=== PATIENT | female | born 1960 | race Caucasian/White ===

== ENCOUNTER 2016-08-24 07:26 | Emergency (ER) | payer OTHER ==
[~2016-08-24] VITALS: Ht 170.2 cm; Wt 78.5 kg
[~2016-08-24 07:26] MED LIST: ALPRAZOLAM0.5 M3 PO; BUTALBITAL/APAP1 CAP PO; DILAUDID2 MG PO; DOXYCYCLINE HYC20 MG PO; EPIPEN0.3 MG/0.3 IM; ESOMEPRAZOLE MA40 MG PO; FLEXERIL10 MG PO; HYDROMORPHONE HC4 MG PO; IBUPROFEN800 M1 PO; LAMICTAL 100MG100 MG PO; LAMOTRIGINE100 MG PO; MIRTAZAPINE15 MG PO; MORPHINE SULFA100 MG PO; PENICILLIN V P500 MG PO; PERCOCET 325 MG1 TA2 PO; PERCOCET 325 MG1 TA3 PO; PROTONIX 40MG T40 MG PO; RANITIDINE300 MG PO; REGLAN10 M1 PO; REGLAN10 MG PO; REMERON30 MG PO; TOBRAMYCIN AND10 ML OPH; TOPAMAX25 M3 PO; TOPIRAMATE25 MG PO; TRAMADOL HCL50 M1 PO; VALIUM2 MG PO; VALIUM5 M1 PO; VALIUM5 M2 PO; ZOFRAN ODT4 M1 PO; ZOFRAN ODT4 MG PO; ZOLPIDEM TARTRA10 M1 PO
[2016-08-24 07:32] VITALS: BP 108/76
--- NOTE | 2016-08-24 07:35 | ED SKIN/ALLERGY COMPLAINT ---
History of Present Illness General Chief Complaint: Skin Rash/ Abcess Stated Complaint: ?SHINGLES Source: patient, old records Exam Limitations: no limitations Vital Signs & Intake/Output Vital Signs & Intake/Output Vital Signs Date Time Temp Pulse Resp B/P B/P Pulse O2 O2 Flow FiO2 Mean Ox Delivery Rate 08/24 0732 98.4 69 18 108/76 99 Room Air Allergies Coded Allergies: latex (Severe, THROAT CLOSES, RASH 08/15/15) venom-honey bee (bee venom (honey bee)) (RED LINE THAT TRAVELS AND THROAT CLOSES 08/15/15) Reconcile Medications Diazepam (Valium) 5 MG TABLET 1 TAB PO TID PRN ANXIETY (Reported) Hydroxyzine Pamoate (Vistaril) 25 MG CAPSULE 1 CAP PO TID PRN ITCH Ibuprofen 800 MG TABLET 1 TAB PO TID PRN PAIN Lamotrigine 100 MG TABLET 1 TAB PO BID MENTAL HEALTH (Reported) Metoclopramide HCl (Reglan) 10 MG TABLET 1 TAB PO TID PRN MIGRAINES (Reported ) 30 minutes before meals and bedtime Mirtazapine (Remeron) 30 MG TABLET 1 TAB PO QPM SLEEP Morphine Sulfate (Morphine Sulfate ER) 100 MG TABLET.ER 1 TAB PO BID PAIN ( Reported) Ondansetron (Zofran Odt) 4 MG TAB.RAPDIS 1 TAB PO Q6 PRN NAUSEA Prednisone 10 MG TABLET 1 TAB PO DAILY CONTACT DERMATITIS TAKE 4 TABS FOR 3 DAYS THEN TAKE 3 TABS FOR 3 DAYS THEN TAKE 2 TABS FOR 3 DAYS THEN TAKE 1 TAB FOR 3 DAYS Topiramate (Topamax) 25 MG TABLET 1 TAB PO TID UNKNOWN (Reported) Tramadol HCl 50 MG TABLET 1 TAB PO Q6 PRN PAIN Tylenol With Codeine (Tylenol With Codeine #3 Tablet) 300 MG-30 MG TABLET 1 TAB PO Q8P PRN PAIN Zolpidem Tartrate 10 MG TABLET 1 TAB PO QHS PRN SLEEP (Reported) Triage Note: C/O PAINFUL, ITCHY, BURNING RASH TO BOTH ARMS X 5 DAYS. THINKS SHE HAS SHINGLES. Triage Nurses Notes Reviewed? yes HPI: Patient presents with worsening itchy burning rash that started on her right forearm and is now spread to her left forearm. The pain is burning in nature and is constant. The burning sensation worsened when she scratches. There is no radiation of the burning pain. She rates the burning pain is 8 out of 10 and she is requesting something to help the pain. Past History Travel History Traveled to [place] past 21 day No Medical History Any Pertinent Medical History? 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 No Review of Systems Review of Systems Constitutional: Reports: no symptoms. EENTM: Reports: no symptoms. Respiratory: Reports: no symptoms. Cardiovascular: Reports: no symptoms. GI: Reports: no symptoms. Genitourinary: Reports: no symptoms. Musculoskeletal: Reports: no symptoms. Skin: Reports: see HPI, rash. Neurological/Psychological: Reports: no symptoms. Hematologic/Endocrine: Reports: no symptoms. Immunologic/Allergic: Reports: no symptoms. All Other Systems: Reviewed and Negative Physical Exam Physical Exam General Appearance: well developed/nourished, mild distress Head: atraumatic Eyes: Bilateral: PERRL, EOMI. Ears, Nose, Throat: normal pharynx, normal ENT inspection, hearing grossly normal Neck: normal inspection, supple Respiratory: normal breath sounds, no respiratory distress, lungs clear Cardiovascular: regular rate/rhythm, normal peripheral pulses Gastrointestinal: normal bowel sounds, soft, non-tender Back: normal inspection Extremities: normal inspection, normal range of motion, no edema Neurologic/Psych: awake, alert, oriented x 3, normal mood/affect Skin: rash Skin Problem Location: upper extremities (B/L) Skin Problem Character: macules, papules, rash Lymphatic: no anterior cervical heather Comments: no evidence of scabies or bed bugs Progress Differential Diagnosis: contact dermatitis Plan of Care: Current Medications Sig/Alka Start time Last Medication Dose Stop Time Status Admin Hydroxyzine HCl 25 MG ONCE ONE 04/19 0745 AC (Atarax) 08/24 745 Prednisone 60 MG ONCE ONE 08/24 744 AC 08/24 745 Departure Departure Disposition: HOME OR SELF CARE Condition: Stable Clinical Impression Primary Impression: Contact dermatitis Referrals: JAIRON MONTALVO APRN (PCP/Family) Additional Instructions: return if symptoms worsen or for any concerns Departure Forms: Customer Survey General Discharge Information Prescriptions: Current Visit Scripts Prednisone 1 TAB PO DAILY #30 TAB TAKE 4 TABS FOR 3 DAYS THEN TAKE 3 TABS FOR 3 DAYS THEN TAKE 2 TABS FOR 3 DAYS THEN TAKE 1 TAB FOR 3 DAYS Tylenol With Codeine (Tylenol With Codeine #3 Tablet) 1 TAB PO Q8P PRN PAIN #10 TAB Hydroxyzine Pamoate (Vistaril) 1 CAP PO TID PRN ITCH #30 CAP
[2016-08-24] MEDS ORDERED: VISTARIL25 M1 PO (07:44)
[2016-08-24] MEDS ORDERED: PREDNISONE10 M2 PO (07:44)
[2016-08-24] MEDS ORDERED: TYLENOL WITH C1 EACH PO (07:44)
== END 2016-08-24 07:56 ==
LOC: ERH 07:26
DX: L25.9 Unspecified contact dermatitis, unspecified cause (principal)

== ENCOUNTER 2017-05-20 17:30 | Emergency (ER) | payer OTHER, MEDICARE ==
[~2017-05-20] VITALS: Ht 167.6 cm; Wt 68.0 kg
[~2017-05-20 17:30] MED LIST changes: +PREDNISONE10 M2 PO; +TYLENOL WITH C1 EACH PO; +VISTARIL25 M1 PO
[2017-05-20 18:15] LABS: ABSOLUTE BASOPHIL COUNT 0 /CUMM (0.0-0.2); ABSOLUTE EOSINOPHIL COUNT 0.2 /CUMM (0.0-0.7); ABSOLUTE GRANULOCYTE CT 2.4 /CUMM (1.4-6.5); ABSOLUTE LYMPH COUNT 3.4 /CUMM (1.2-3.4); ABSOLUTE MONOCYTE COUNT 0.5 /CUMM (0.10-0.60); BASOPHIL % 0.5 % (0.0-2.0); EOSINOPHIL % 2.5 % (0-5); GRANULOCYTE % 36.9 % (42.2-75.2); HEMATOCRIT 38.7 % (37-47); MEAN CORPUSCULAR HGB 29.5 PG (27.0-31.0); MEAN CORPUSCULAR HGB CONC 33.4 G/DL (33.0-37.0); MEAN CORPUSCULAR VOLUME 88.4 FL (81.0-99.0); PLATELET COUNT 292 /CUMM (130-400); RED BLOOD CELL CT 4.38 /CUMM (4.20-5.40); WHITE BLOOD CELL COUNT 6.5 /CUMM (4.8-10.8)
--- NOTE | 2017-05-20 18:15 | ED GI/GU/ABDOMINAL COMPLAINT ---
History of Present Illness General Chief Complaint: General Adult Stated Complaint: PT SAYS HER LIVER IS SWALLOW AND SHAKEY Source: patient, old records Exam Limitations: no limitations Vital Signs & Intake/Output Vital Signs & Intake/Output Vital Signs Date Time Temp Pulse Resp B/P B/P Pulse O2 O2 Flow FiO2 Mean Ox Delivery Rate 05/20 1750 97.4 90 18 111/84 99 Room Air Allergies Coded Allergies: latex (Severe, THROAT CLOSES, RASH 08/15/15) venom-honey bee (bee venom (honey bee)) (RED LINE THAT TRAVELS AND THROAT CLOSES 08/15/15) Reconcile Medications Diazepam (Valium) 5 MG TABLET 1 TAB PO TID PRN ANXIETY (Reported) Diazepam (Valium) 5 MG TABLET 1 TAB PO BIDP PRN anxiety Hydroxyzine Pamoate (Vistaril) 25 MG CAPSULE 1 CAP PO TID PRN ITCH Ibuprofen 800 MG TABLET 1 TAB PO TID PRN PAIN Lamotrigine 100 MG TABLET 1 TAB PO BID MENTAL HEALTH (Reported) Metoclopramide HCl (Reglan) 10 MG TABLET 1 TAB PO TID PRN MIGRAINES (Reported ) 30 minutes before meals and bedtime Mirtazapine (Remeron) 30 MG TABLET 1 TAB PO QPM SLEEP Morphine Sulfate (Morphine Sulfate ER) 100 MG TABLET.ER 1 TAB PO BID PAIN ( Reported) Ondansetron (Zofran Odt) 4 MG TAB.RAPDIS 1 TAB PO Q6 PRN NAUSEA Prednisone 10 MG TABLET 1 TAB PO DAILY CONTACT DERMATITIS TAKE 4 TABS FOR 3 DAYS THEN TAKE 3 TABS FOR 3 DAYS THEN TAKE 2 TABS FOR 3 DAYS THEN TAKE 1 TAB FOR 3 DAYS Topiramate (Topamax) 25 MG TABLET 1 TAB PO TID UNKNOWN (Reported) Tramadol HCl 50 MG TABLET 1 TAB PO Q6 PRN PAIN Tylenol With Codeine (Tylenol With Codeine #3 Tablet) 300 MG-30 MG TABLET 1 TAB PO Q8P PRN PAIN Zolpidem Tartrate 10 MG TABLET 1 TAB PO QHS PRN SLEEP (Reported) Triage Note: PT TO ED FOR R UPPER ABD PAIN X SEVERAL WEEKS, STATING SHE WAS EVALUATED FOR SAME ONE YEAR AGO AND WAS DX'ED WITH A "SWOLLEN LIVER". DENIES N/V/D, C/O LIGHTHEADEDNESS AND ANXIETY. PT STATING SHE WAS SUPPOSED TO GET AN OUTPATIENT US TODAY BUT DIDNT GO "SO I WAS HOPING I COULD GET THAT DONE HERE." Triage Nurses Notes Reviewed? yes ? n Is pt currently ? No Onset: Abrupt Duration: constant, x 1 year Timing: recent history Quality/Severity: moderate Severity Numbers: 6 Location: right upper quadrant Radiation: flank (right) Activities at Onset: none No Modifying Factors: none Associated Symptoms: denies HPI: 56-year-old female history of bipolar, anxiety presents complaining one year history of right upper quadrant pain into the right flank. The patient states that she was evaluated by her primary care physician about a year ago and was told that she has a "swollen liver" and was told that her liver tests were in the "900s" patient denies history of alcohol abuse nausea vomiting diarrhea. She was scheduled for an ultrasound today however states she came here instead. She denies any change in her bowel movements no black or bloody stools no chest pain dizziness lightheadedness. The patient states that her pain is making her anxious however she's been taking Valium which is been helping. No fever no chills. No jaundice. She denies history of alcohol abuse. She states the pain is worse with lying on the side there is no shortness of breath or pain with inspiration. Past History Travel History Traveled to [place] past 21 day No Medical History Any Pertinent Medical History? 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 No Review of Systems Review of Systems Constitutional: Reports: see HPI. Comments Review of systems: See HPI, All other systems negative. Constitutional, no chills no fever HEENT: no sore throat no congestion Cardiovascular: No chest pain Skin: no rashes, no change in skin Respiratory: No dyspnea no cough no sputum GI: No nausea no vomiting, no diarrhea, : No dysuria No hematuria, no frequency Muscle skeletal: No joint pain, no back pain Neurologic: , no headache Heme/endocrine: No bruising Immunology: No lymphadenopathy Physical Exam Physical Exam General Appearance: well developed/nourished, no apparent distress, alert Gastrointestinal: normal bowel sounds, soft, non-tender Comments: Well-developed well-nourished person in no acute distress HEENT: Normal EENT exam; PERRL, EOMI, HEAD is atraumatic. moist mucous membranes. Neck: Supple, normal range of motion Back: Nontender, right flank tenderness tenderness. Full range of motion Cardiovascular: Regular rate and rhythms no murmurs Respiratory: Chest nontender.There were no bony deformities, no asymmetry. No respiratory distress. Patient speaking in full complete sentences. Breath sounds clear to auscultation bilaterally: NO W/R/R Abdomen: Soft, nontender, negative Weathers's sign nondistended, no appreciable organomegaly. Normal bowel sounds. No rebound/guarding, No appreciable enlargement of the abdominal aorta, No ascites. Extremity: No edema, full range of motion of extremities Neuro: Alert oriented x3, motor sensory normal, There were no obvious focal neurologic abnormalities. Skin: No appreciable rash on exposed skin, skin is warm and dry. Psych: Mood and affect is normal, memory and judgment is normal. Core Measures ACS in differential dx? No Sepsis Present: No Sepsis Focused Exam Completed? No Progress Differential Diagnosis: biliary colic, bowel obstruction, colon cancer, cholecystitis, diverticulitis, gastritis, hepatitis, hernia, inflamm bowel dis Plan of Care: Orders Procedure Date/time Status Add-on Test (ER Only) 05/20 1825 Active LIPASE 05/20 175 Complete EKG 05/20 175 Active COMPREHENSIVE METABOLIC PANEL 05/20 175 Complete CBC WITHOUT DIFFERENTIAL 05/20 175 Complete Current Medications Sig/Alka Start time Last Medication Dose Stop Time Status Admin Diazepam 2 MG ONCE ONE 05/20 2100 UNVr (Valium) 05/20 2100 Ketorolac 30 MG ONCE ONE 05/20 1830 CAN Tromethamine 05/20 183 (Toradol) Laboratory Tests 05/20/17 1759: Anion Gap 14, Estimated GFR > 60, BUN/Creatinine Ratio 31.4 H, Glucose 98, Calcium 10.0, Total Bilirubin 0.4, AST 21, ALT 28, Alkaline Phosphatase 66, Total Protein 7.5, Albumin 4.8, Globulin 2.7, Albumin/Globulin Ratio 1.8, Lipase 69, CBC w Diff NO MAN DIFF REQ, RBC 4.38, MCV 88.4, MCH 29.5, RDW 14.0, MPV 7.0 L, Gran % 36.9 L, Lymphocytes % 52.7 H, Monocytes % 7.4, Eosinophils % 2.5, Basophils % 0.5, Absolute Granulocytes 2.4, Absolute Lymphocytes 3.4, Absolute Monocytes 0.5, Absolute Eosinophils 0.2, Absolute Basophils 0, PUBS MCHC 33.4 Labs ordered old records 3 pacemaker Toradol 30 IM On repeat evaluation patient resting in no apparent distress and discussed with all of her labs pending CAT scan 2054 I discussed the patient at length all her results I did advise close follow -up with her primary care physician on Monday return precautions were discussed at length there is no pain with inspiration no shortness of breath or cough no hemoptysis, pain is reproducible to the right flank. Abdomen exam is unremarkable. Diagnostic Imaging: Viewed by Me: CT Scan. Discussed w/RAD: CT Scan. Radiology Impression: PATIENT: DUC NARVAEZ PRESENT AGE: 56 PATIENT ACCOUNT NO: [id number] : 62 LOCATION: [facility] ORDERING PHYSICIAN: Jerry KENYON SERVICE DATE: 05/20/17 EXAM TYPE: CAT - CT ABD & PELVIS W/O IV CONTRAS EXAMINATION: CT ABDOMEN AND PELVIS WITHOUT CONTRAST CLINICAL INFORMATION: Right upper quadrant pain COMPARISON: Abdominal ultrasound 09/01/2011 TECHNIQUE: Multidetector volumetric imaging was performed from the superior aspect of the liver through the pubic symphysis. Sagittal and coronal reformatted images were obtained on the technologist's workstation. DLP: 250 mGy -cm FINDINGS: LUNG BASES: The visualized lung bases are unremarkable. LIVER, GALLBLADDER, AND BILIARY TREE: The liver is normal in size, shape, and attenuation. No focal hepatic lesion or biliary ductal dilatation is present. The gallbladder is unremarkable with no evidence of radiopaque gallstones, gallbladder wall thickening, or obvious pericholecystic inflammatory changes. PANCREAS: Unremarkable. SPLEEN: Unremarkable. ADRENAL GLANDS: Unremarkable. KIDNEYS AND URETERS: The kidneys are normal in size, shape, and attenuation. No hydronephrosis, hydroureter, or calculi seen. No perinephric stranding. BLADDER: Completely empty. GASTROINTESTINAL TRACT: Dense stool is noted throughout the colon. There are no dilated loops of small or large bowel. The appendix is normal. ABDOMINAL WALL: No significant hernia is appreciated. LYMPH NODES: Normal. VASCULAR: Unremarkable. PELVIC VISCERA: Unremarkable. No significant free fluid within the pelvis. OSSEOUS STRUCTURES: Unremarkable. IMPRESSION: 1. Limited noncontrast CT of abdomen and pelvis. 2. No convincing acute intra- abdominal or pelvic process. 3. Dense stool throughout the colon. DICTATED BY: Asha Edwards MD DATE/TIME DICTATED:05/20/172032 LOG ROLLER:DOMI DATE/TIME TRANSCRIBED:05/20/172032 CONFIDENTIAL, DO NOT COPY WITHOUT APPROPRIATE AUTHORIZATION. <Electronically signed in Other Vendor System> SIGNED BY: Asha Edwards MD 05/20/172039 Initial ED EKG: nsr at 75, no acute st seg changes, normal axis Prior EKG: unchanged (07/2012) Departure Departure Time of Disposition: 2045 Disposition: HOME OR SELF CARE Condition: Stable Clinical Impression Primary Impression: Abdominal pain Referrals: Dmitri Osorio APRN (PCP/Family) Additional Instructions: Follow-up with your primary care physician this week. Valium as directed. Return anytime sooner with any concerns. Departure Forms: Customer Survey General Discharge Information Prescriptions: Current Visit Scripts Diazepam (Valium) 1 TAB PO BIDP PRN anxiety #10 TAB
--- NOTE | 2017-05-20 20:40 | CT SCAN REPORT ---
EXAMINATION: CT ABDOMEN AND PELVIS WITHOUT CONTRAST CLINICAL INFORMATION: Right upper quadrant pain COMPARISON: Abdominal ultrasound 09/01/2011 TECHNIQUE: Multidetector volumetric imaging was performed from the superior aspect of the liver through the pubic symphysis. Sagittal and coronal reformatted images were obtained on the technologist's workstation. DLP: 250 mGy-cm FINDINGS: LUNG BASES: The visualized lung bases are unremarkable. LIVER, GALLBLADDER, AND BILIARY TREE: The liver is normal in size, shape, and attenuation. No focal hepatic lesion or biliary ductal dilatation is present. The gallbladder is unremarkable with no evidence of radiopaque gallstones, gallbladder wall thickening, or obvious pericholecystic inflammatory changes. PANCREAS: Unremarkable. SPLEEN: Unremarkable. ADRENAL GLANDS: Unremarkable. KIDNEYS AND URETERS: The kidneys are normal in size, shape, and attenuation. No hydronephrosis, hydroureter, or calculi seen. No perinephric stranding. BLADDER: Completely empty. GASTROINTESTINAL TRACT: Dense stool is noted throughout the colon. There are no dilated loops of small or large bowel. The appendix is normal. ABDOMINAL WALL: No significant hernia is appreciated. LYMPH NODES: Normal. VASCULAR: Unremarkable. PELVIC VISCERA: Unremarkable. No significant free fluid within the pelvis. OSSEOUS STRUCTURES: Unremarkable. IMPRESSION: 1. Limited noncontrast CT of abdomen and pelvis. 2. No convincing acute intra-abdominal or pelvic process. 3. Dense stool throughout the colon.
[2017-05-20] MEDS ORDERED: VALIUM5 M2 PO (20:48)
[2017-05-20 20:56] VITALS: BP 124/68
== END 2017-05-20 20:57 ==
LOC: ERH 17:30
PROVIDERS: Emergency Medicine
DX: R10.11 Right upper quadrant pain (principal)
CPT/HCPCS: 74176; 93005; 93010; 96372; J1885

== ENCOUNTER 2017-05-29 13:59 | Emergency (ER) | payer OTHER, MEDICARE ==
[~2017-05-29] VITALS: Ht 170.2 cm; Wt 68.0 kg
[~2017-05-29 13:59] MED LIST changes: +LAMOTRIGINE100 M2 PO; -LAMOTRIGINE100 MG PO
[2017-05-29 14:45] VITALS: BP 100/65
== END 2017-05-29 15:00 | disposition admitted as inpatient to this hospital (09) ==
LOC: ERH 13:59
DX: R07.81 Pleurodynia (principal)

== ENCOUNTER 2017-05-31 13:29 | Emergency (ER) | payer OTHER, MEDICARE ==
[~2017-05-31] VITALS: Ht 170.2 cm; Wt 65.8 kg
--- NOTE | 2017-05-31 14:05 | ED GENERAL ADULT ---
History of Present Illness General Chief Complaint: Abdominal Pain/Flank Pain Stated Complaint: ABD PAIN Source: patient, old records Exam Limitations: no limitations Vital Signs & Intake/Output Vital Signs & Intake/Output Vital Signs Date Time Temp Pulse Resp B/P B/P Pulse O2 O2 Flow FiO2 Mean Ox Delivery Rate 05/31 1605 98.8 89 16 128/76 97 Room Air 05/31 1438 98 Room Air 05/31 1335 98.6 99 16 121/81 98 Room Air Allergies Coded Allergies: latex (Severe, THROAT CLOSES, RASH 08/15/15) venom-honey bee (bee venom (honey bee)) (RED LINE THAT TRAVELS AND THROAT CLOSES 08/15/15) Reconcile Medications Diazepam (Valium) 5 MG TABLET 1 TAB PO TID PRN ANXIETY (Reported) Diazepam (Valium) 5 MG TABLET 1 TAB PO BIDP PRN anxiety Hydroxyzine Pamoate (Vistaril) 25 MG CAPSULE 1 CAP PO TID PRN ITCH Ibuprofen 800 MG TABLET 1 TAB PO TID PRN PAIN Lamotrigine 100 MG TABLET 1 TAB PO BID MENTAL HEALTH (Reported) Metoclopramide HCl (Reglan) 10 MG TABLET 1 TAB PO TID PRN MIGRAINES (Reported ) 30 minutes before meals and bedtime Mirtazapine (Remeron) 30 MG TABLET 1 TAB PO QPM SLEEP Morphine Sulfate (Morphine Sulfate ER) 100 MG TABLET.ER 1 TAB PO BID PAIN ( Reported) Naproxen (Naprosyn) 500 MG TABLET 1 TAB PO BID PRN PAIN Ondansetron (Zofran Odt) 4 MG TAB.RAPDIS 1 TAB PO Q6 PRN NAUSEA Prednisone 10 MG TABLET 1 TAB PO DAILY CONTACT DERMATITIS TAKE 4 TABS FOR 3 DAYS THEN TAKE 3 TABS FOR 3 DAYS THEN TAKE 2 TABS FOR 3 DAYS THEN TAKE 1 TAB FOR 3 DAYS Topiramate (Topamax) 25 MG TABLET 1 TAB PO TID UNKNOWN (Reported) Tramadol HCl 50 MG TABLET 1 TAB PO Q6 PRN PAIN Tylenol With Codeine (Tylenol With Codeine #3 Tablet) 300 MG-30 MG TABLET 1 TAB PO Q8P PRN PAIN Zolpidem Tartrate 10 MG TABLET 1 TAB PO QHS PRN SLEEP (Reported) Triage Note: 56F RETURNS FOR CONTINUED RUQ PAIN XMONTHS, SEEN HERE 3X THIS MONTH FOR SAME HAD BLOODWORK AND CT WHICH WERE INSIGNIFICANT. HAS NOT FOLLOWED UP WITH PMD, NEEDS REFERRAL FOR GI. PAIN IS CONSTANT AND RADIATES TO BACK, TENDER TO TOUCH. UNSURE IF IT IS MUSCULAR. -N/V/D. AFEBRILE Triage Nurses Notes Reviewed? yes Onset: Gradual Duration: worse persistent since (MONTHS) Timing: recent history Injury Environment: home Severity: severe Severity Numbers: 9 Modifying Factors: Improves With: immobilization. Worsens With: movement. HPI: Patient is a 56-year-old female presenting to the emergency department with chief complaint of right upper quadrant abdominal pain and right rib pain has been going on constantly for the past several months. She's had seen and evaluated multiple times for cell or symptoms. She has not had the chance to follow up with a specialist yet. She's been taking [id number] Tylenol without relief. Denies any associated nausea or vomiting. Denies any change in diet. No chest pain or palpitations. No shortness of breath. Pain does get worse with deep inspiration. Denies any trauma. No heavy lifting. It does not get worse after eating. (Kasey Barraza) Past History Travel History Traveled to [place] past 21 day No Medical History Any Pertinent Medical History? 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 No (Kasey Barraza) Review of Systems Review of Systems Constitutional: Reports: no symptoms. Comments Review of systems: See HPI, All other systems negative. Constitutional, no chills fever or weight loss HEENT: No visual changes no sore throat no congestion Cardiovascular: No chest pain ,palpitation , orthopnea or ankle swelling Skin, no jaundice no rashes Respiratory: No dyspnea cough sputum or hemoptysis GI: No nausea no vomiting : No dysuria No hematuria Muscle skeletal: no back pain, no neck pain, Neurologic: No numbness no confusion NO HEADACHES Psych: No stress anxiety or depression,. Heme/endocrine: No bruising no bleeding no polyuria or polydipsia Immunology: No splenectomy or history of AIDS (Kasey Barraza) Physical Exam Physical Exam General Appearance: well developed/nourished, no apparent distress, alert, awake , comfortable Comments: Well-developed well-nourished person in no acute distress HEENT: Normal EENT exam, extraocular motion intact, no nystagmus. Pupils equally round and reactive to light and accommodation. Nose is atraumatic. External auditory canal and Tympanic membranes clear. Pharynx normal. No swelling or edema. Neck: Supple, no lymphadenopathy, normal range of motion without pain or tenderness Back: Nontender, no CVA tenderness. Full range of motion Cardiovascular: Regular rate and rhythms no murmurs rubs or gallops, normal JVP Respiratory: Chest IS TENDER TO PALPATION OVER RIGHT ANTERIOR AND LATERAL RIBS. No respiratory distress.breath sounds clear to auscultation bilaterally Abdomen: Soft, TENDER TO PALPATION OVER RUQ nondistended, no appreciable organomegaly. Normal bowel sounds. No ascites Extremity: No edema, no calf tenderness to palpation, normal and equal pulses. Neuro: Alert oriented x3 Skin: No appreciable rash on exposed skin, skin is warm and dry. Psych: Mood and affect is normal, memory and judgment is normal. Core Measures ACS in differential dx? No CVA/TIA Diagnosis: No Sepsis Present: No Sepsis Focused Exam Completed? No Diagram Body: 1) PAIN OVER RIGHT FLANK/RIGHT RIBS AND RUQ (Kasey Barraza) Progress Differential Diagnoses I considered the following diagnoses in my evaluation of the patient: Rib contusion, rib fracture, gallbladder dysfunction, biliary colic, pulmonary embolus, ACS, muscle strain Plan of Care: Orders Procedure Date/time Status TROPONIN LEVEL 05/31 1403 Complete PARTIAL THROMBOPLASTIN TIME 05/31 1403 Complete PROTHROMBIN TIME 05/31 1403 Complete LIPASE 05/31 1403 Complete D-DIMER 05/31 1403 Complete COMPREHENSIVE METABOLIC PANEL 05/31 1403 Complete CBC WITHOUT DIFFERENTIAL 05/31 1403 Complete EKG 05/31 1403 Active Current Medications Sig/Alka Start time Last Medication Dose Stop Time Status Admin Ketorolac 30 MG ONCE ONE 05/31 1415 CAN Tromethamine 05/31 1416 (Toradol) Laboratory Tests 05/31/17 1417: Anion Gap 11, Estimated GFR > 60, BUN/Creatinine Ratio 23.3, Glucose 92, Calcium 9.5, Total Bilirubin 0.4, AST 18, ALT 33, Alkaline Phosphatase 58, Troponin I < 0.01, Total Protein 6.3, Albumin 3.9, Globulin 2.4, Albumin/Globulin Ratio 1.6, Lipase 72, PT 11.3, INR 1.08, APTT 30, D-Dimer High Sensitivty < 200, CBC w Diff NO MAN DIFF REQ, RBC 4.07 L, MCV 87.2, MCH 29.2, MCHC 33.5, RDW 14.0, MPV 7.4, Gran % 48.0, Lymphocytes % 43.0, Monocytes % 6.4, Eosinophils % 1.8, Basophils % 0.8, Absolute Granulocytes 2.3, Absolute Lymphocytes 2.1, Absolute Monocytes 0.3 , Absolute Eosinophils 0.1, Absolute Basophils 0 Diagnostic Imaging: Viewed by Me: Ultrasound. Discussed w/RAD: Ultrasound. Radiology Impression: PATIENT: DUC NARVAEZ PRESENT AGE: 56 PATIENT ACCOUNT NO: [id number] : 62 LOCATION: [facility] ORDERING PHYSICIAN: Kasey KENYON SERVICE DATE: 05/31/17 EXAM TYPE: US - US-LIMITED ABDOMEN EXAMINATION: US ABDOMEN LIMITED CLINICAL INFORMATION: Right upper quadrant pain. COMPARISON: CT scan of the abdomen and pelvis dated 2017. TECHNIQUE: Real-time imaging of the right upper quadrant abdominal viscera. FINDINGS: PANCREAS: Normal. LIVER: No focal hepatic findings. The liver demonstrates normal size and contour, and minimally generally increased in echogenicity. No focal lesion or intrahepatic biliary duct dilatation. GALLBLADDER: No sonographic Weathers's sign was elicited during the study. The gallbladder is physiologically distended without evidence of stones, sludge, polyps, wall thickening or pericholecystic fluid. COMMON BILE DUCT: Normal in caliber measuring 0.4 cm in diameter. RIGHT KIDNEY: Normal. No hydronephrosis. No renal calculi or focal parenchymal lesions. The kidney measures 10.0 cm in maximum dimension. FREE FLUID: None. IMPRESSION: 1. Mild generalized hepatic steatosis. 2. No sonographic evidence of acute cholecystitis or cholelithiasis. Of note, no sonographic Weathers's sign was elicited during the study. DICTATED BY : Ny Reeves MD DATE/TIME DICTATED:05/31/171551 AUGER OPERATOR: DOMI DATE/TIME TRANSCRIBED:05/31/171551 CONFIDENTIAL, DO NOT COPY WITHOUT APPROPRIATE AUTHORIZATION. <Electronically signed in Other Vendor System> SIGNED BY: Ny Reeves MD 05/31/171558 Initial ED EKG: normal axis (72 BPM), NSR Comments: D-dimer is negative. Mild pain relief after IV Toradol. STILL pending ultrasound. Labs are unremarkable. Troponin negative. EKG unchanged. She will follow up with GI. Etiology of pain unclear at this time. Could be muscular. (Kasey Barraza) Departure Departure Time of Disposition: 1606 Disposition: HOME OR SELF CARE Condition: Stable Clinical Impression Primary Impression: Abdominal pain Qualifiers: Abdominal location: right upper quadrant Qualified Code: R10.11 - Right upper quadrant pain Referrals: Dmitri Osorio APRN (PCP/Family) Marco Mancini MD Additional Instructions: Follow-up with gastroenterology call to make appointment in the next 5-7 days. YOU may need HIDA SCAN FOR FURTHER EVALUATION. TAKE NAPROXEN PRESCRIBED FOR PAIN. RETURN FOR WORSENING SYMPTOMS OR CONCERNS. Departure Forms: Customer Survey General Discharge Information Prescriptions: Current Visit Scripts Naproxen (Naprosyn) 1 TAB PO BID PRN PAIN #20 TAB (Kasey Barraza) PA/EATING DISORDER SPECIALIST Co-Sign Statement Statement: ED Attending supervision documentation- [] I saw and evaluated the patient. I have also reviewed all the pertinent lab results and diagnostic results. I agree with the findings and the plan of care as documented in the PA's/EATING DISORDER SPECIALIST's documentation. [X] I have reviewed the ED Record and agree with the PA's/EATING DISORDER SPECIALIST's documentation. [] Additions or exceptions (if any) to the PAs/EATING DISORDER SPECIALIST's note and plan are summarized below: [] (Stefany CATES,Fadia) Critical Care Note Critical Care Note Critical Care Time: non-applicable (Kasey Barraza)
[2017-05-31 14:31] LABS: ABSOLUTE BASOPHIL COUNT 0 /CUMM (0.0-0.2); ABSOLUTE EOSINOPHIL COUNT 0.1 /CUMM (0.0-0.7); ABSOLUTE GRANULOCYTE CT 2.3 /CUMM (1.4-6.5); ABSOLUTE LYMPH COUNT 2.1 /CUMM (1.2-3.4); ABSOLUTE MONOCYTE COUNT 0.3 /CUMM (0.10-0.60); BASOPHIL % 0.8 % (0.0-2.0); EOSINOPHIL % 1.8 % (0-5); HEMATOCRIT 35.5 % (37-47); MEAN CORPUSCULAR HGB 29.2 PG (27.0-31.0); MEAN CORPUSCULAR HGB CONC 33.5 G/DL (33.0-37.0); MEAN CORPUSCULAR VOLUME 87.2 FL (81.0-99.0); MEAN PLATELET VOLUME 7.4 FL (7.4-10.4); PLATELET COUNT 203 /CUMM (130-400); RED BLOOD CELL CT 4.07 /CUMM (4.20-5.40); WHITE BLOOD CELL COUNT 4.8 /CUMM (4.8-10.8)
[2017-05-31 14:38] LABS: PT 11.3 SEC (9.4-12.5); PTT 30 SEC (25-37)
--- NOTE | 2017-05-31 15:59 | ULTRASOUND REPORT ---
EXAMINATION: US ABDOMEN LIMITED CLINICAL INFORMATION: Right upper quadrant pain. COMPARISON: CT scan of the abdomen and pelvis dated 05/20/2017. TECHNIQUE: Real-time imaging of the right upper quadrant abdominal viscera. FINDINGS: PANCREAS: Normal. LIVER: No focal hepatic findings. The liver demonstrates normal size and contour, and minimally generally increased in echogenicity. No focal lesion or intrahepatic biliary duct dilatation. GALLBLADDER: No sonographic Weathers's sign was elicited during the study. The gallbladder is physiologically distended without evidence of stones, sludge, polyps, wall thickening or pericholecystic fluid. COMMON BILE DUCT: Normal in caliber measuring 0.4 cm in diameter. RIGHT KIDNEY: Normal. No hydronephrosis. No renal calculi or focal parenchymal lesions. The kidney measures 10.0 cm in maximum dimension. FREE FLUID: None. IMPRESSION: 1. Mild generalized hepatic steatosis. 2. No sonographic evidence of acute cholecystitis or cholelithiasis. Of note, no sonographic Weathers's sign was elicited during the study.
[2017-05-31 16:05] VITALS: BP 128/76
[2017-05-31] MEDS ORDERED: NAPROSYN500 M1 PO (16:08)
[2017-05-31] MEDS ORDERED: VITAMIN D3400 UNI1 PO (16:25)
[2017-05-31] MEDS ORDERED: VENTOLIN HFA18 GM INH (16:26)
[2017-05-31] MEDS ORDERED: PANTOPRAZOLE SO40 M1 PO (16:26)
[2017-05-31] MEDS ORDERED: MIRTAZAPINE45 M1 PO (16:27)
[2017-05-31] MEDS ORDERED: ADVAIR 250-501 EACH INH (16:27)
== END 2017-05-31 16:48 ==
LOC: ERH 13:29
PROVIDERS: Physician Assistant
DX: R10.11 Right upper quadrant pain (principal)
CPT/HCPCS: 93005; 93010; 96374; J1885

== ENCOUNTER 2017-10-13 14:54 | Emergency (ER) | payer OTHER, MEDICARE ==
[~2017-10-13] VITALS: Ht 167.6 cm; Wt 63.5 kg
[~2017-10-13 14:54] MED LIST changes: +ADVAIR 250-501 EACH INH; +MIRTAZAPINE45 M1 PO; +NAPROSYN500 M1 PO; +PANTOPRAZOLE SO40 M1 PO; +VENTOLIN HFA18 GM INH; +VITAMIN D3400 UNI1 PO
[2017-10-13 15:24] LABS: ABSOLUTE BASOPHIL COUNT 0.1 /CUMM (0.0-0.2); ABSOLUTE EOSINOPHIL COUNT 0.2 /CUMM (0.0-0.7); ABSOLUTE GRANULOCYTE CT 6.1 /CUMM (1.4-6.5); ABSOLUTE LYMPH COUNT 2.2 /CUMM (1.2-3.4); ABSOLUTE MONOCYTE COUNT 0.6 /CUMM (0.10-0.60); BASOPHIL % 0.8 % (0.0-2.0); EOSINOPHIL % 2.1 % (0-5); GRANULOCYTE % 66.3 % (42.2-75.2); HEMATOCRIT 38.8 % (37-47); MEAN CORPUSCULAR HGB 29.5 PG (27.0-31.0); MEAN CORPUSCULAR HGB CONC 33.8 G/DL (33.0-37.0); MEAN CORPUSCULAR VOLUME 87.3 FL (81.0-99.0); MEAN PLATELET VOLUME 6.8 FL (7.4-10.4); PLATELET COUNT 288 /CUMM (130-400); RBC DISTRIBUTION WIDTH 13.6 % (11.5-14.5); RED BLOOD CELL CT 4.45 /CUMM (4.20-5.40); WHITE BLOOD CELL COUNT 9.2 /CUMM (4.8-10.8)
--- NOTE | 2017-10-13 15:40 | RADIOLOGY REPORT ---
EXAMINATION: XR CHEST CLINICAL INFORMATION: Cough. COMPARISON: None TECHNIQUE: 2 views of the chest were obtained. FINDINGS: No significant abnormality is noted involving the heart, lungs, mediastinum, bony thorax or soft tissues. IMPRESSION: Unremarkable examination.
--- NOTE | 2017-10-13 16:47 | ED DYSPNEA/ASTHMA COMPLAINT ---
History of Present Illness General Chief Complaint: Upper Respiratory Sx/Fever Stated Complaint: COUGH Source: patient, old records Exam Limitations: no limitations Vital Signs & Intake/Output Vital Signs & Intake/Output Vital Signs Date Time Temp Pulse Resp B/P B/P Pulse O2 O2 Flow FiO2 Mean Ox Delivery Rate 10/13 1620 97 10/13 1503 98.6 98 18 134/61 98 Room Air Allergies Coded Allergies: latex (Severe, THROAT CLOSES, RASH 08/15/15) venom-honey bee (bee venom (honey bee)) (RED LINE THAT TRAVELS AND THROAT CLOSES 08/15/15) Reconcile Medications Albuterol Sulfate (Ventolin Hfa) 90 MCG HFA.AER.AD 2 PUF INH Q4-6 PRN PRN SHORTNESS OF BREATH (Reported) Amoxicillin/Potassium Clav (Augmentin 875-125 Tablet) 875 MG-125 MG TABLET 1 TAB PO BID BRONCHITIS Azithromycin 250 MG TABLET 1 DP PO AD BRONCHITIS 2 the first day followed by 1 for days 2-5 Benzonatate (Tessalon Perle) 100 MG CAPSULE 1 CAP PO TID COUGH Cholecalciferol (Vitamin D3) (Vitamin D3) 400 UNIT TABLET 1 TAB PO DAILY HEALTH SUPPLEMENT (Reported) Fluticasone/Salmeterol (Advair 250-50 Diskus) 250 MCG-50 MCG/DOSE BLST.W.DEV 1 PUF INH BID ASTHMA (Reported) Lamotrigine 100 MG TABLET 1 TAB PO BID MENTAL HEALTH (Reported) Mirtazapine 45 MG TABLET 1 TAB PO QPM SLEEP HELP (Reported) Naproxen (Naprosyn) 500 MG TABLET 1 TAB PO BID PRN PAIN Ondansetron (Zofran Odt) 4 MG TAB.RAPDIS 1 TAB PO Q6 PRN NAUSEA Pantoprazole Sodium 40 MG TABLET.DR 1 TAB PO DAILY ACID REFLUX (Reported) Prednisone 20 MG TABLET 1 TAB PO BID BRONCHITIS Triage Note: 57 YO FEMALE TO TRIAGE C/O PRODUCTIVE COUGH X A COUPLE WEEKS, STATES SPUTUM IS GREEN IN COLOR. STATES PAIN IN CHEST WITH INSPIRATION. EKG COMPLETED ON ARRIVAL. PT IN TRIAGE FOR EVAL Triage Nurses Notes Reviewed? yes HPI: 57F PMH COPD, bipolar disorder, pulmonary nodules presenting with 3 weeks of worsening cough and dyspnea. Three weeks ago started with a minimally productive cough and some mild shortness of breath. She did not see a physician at that time. Since then, and especially for the past week, she has had a deep cough that hill in her mid-chest, with thick green sputum worse in the mornings. Denies fevers but reports intermittent chills. Short of breath but still able to climb stairs without dyspnea, and is able to speak in full sentences. Denies chest pain, palpitations, lightheadedness, sore throat, neck stiffness, abdomianl pain, diarrhea, dysuria. Currently staying in a fpc, where no one else is sick. Past History Travel History Traveled to [place] past 21 day No Medical History Any Pertinent Medical History? 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 No Review of Systems Review of Systems Constitutional: Reports: no symptoms. EENTM: Reports: no symptoms. Respiratory: Reports: no symptoms. Cardiovascular: Reports: no symptoms. GI: Reports: no symptoms. Genitourinary: Reports: no symptoms. Musculoskeletal: Reports: no symptoms. Skin: Reports: no symptoms. Neurological/Psychological: Reports: no symptoms. Hematologic/Endocrine: Reports: no symptoms. Immunologic/Allergic: Reports: no symptoms. All Other Systems: Reviewed and Negative Physical Exam Physical Exam General Appearance: well developed/nourished, no apparent distress Head: atraumatic, normal appearance Eyes: Bilateral: normal appearance. Ears, Nose, Throat: normal pharynx, normal ENT inspection, hearing grossly normal Neck: normal inspection, full range of motion Respiratory: normal breath sounds, no respiratory distress Cardiovascular: regular rate/rhythm Gastrointestinal: soft, non-tender Extremities: normal inspection, normal range of motion Neurologic/Psych: awake, alert, oriented x 3, normal mood/affect Skin: intact, normal color, warm/dry Core Measures ACS in differential dx? No CVA/TIA Diagnosis No Sepsis Present: No Sepsis Focused Exam Completed? No Progress Differential Diagnosis: asthma, AMI, bronchitis, COPD, pulmonary embolism, pneumonia, pneumothorax Plan of Care: Orders Procedure Date/time Status D-DIMER 10/13 1505 Complete TROPONIN LEVEL 10/13 1504 Complete COMPREHENSIVE METABOLIC PANEL 10/13 1504 Complete CBC WITHOUT DIFFERENTIAL 10/13 1504 Complete EKG 10/13 1456 Active Laboratory Tests 10/13/17 1515: Anion Gap 12, Estimated GFR > 60, BUN/Creatinine Ratio 21.4, Glucose 107 H, Calcium 9.5, Total Bilirubin 0.3, AST 19, ALT 16, Alkaline Phosphatase 72, Troponin I < 0.01, Total Protein 7.0, Albumin 4.2, Globulin 2.8, Albumin/ Globulin Ratio 1.5, D-Dimer High Sensitivty < 200, CBC w Diff NO MAN DIFF REQ, RBC 4.45, MCV 87.3, MCH 29.5, MCHC 33.8, RDW 13.6, MPV 6.8 L, Gran % 66.3, Lymphocytes % 24.0, Monocytes % 6.8, Eosinophils % 2.1, Basophils % 0.8, Absolute Granulocytes 6.1, Absolute Lymphocytes 2.2, Absolute Monocytes 0.6, Absolute Eosinophils 0.2, Absolute Basophils 0.1 Diagnostic Imaging: Viewed by Me: Radiology Read. Discussed w/RAD: Radiology Read. Radiology Impression: PATIENT: DUC NARVAEZ PRESENT AGE: 57 PATIENT ACCOUNT NO: [id number] : 62 LOCATION: [facility] ORDERING PHYSICIAN: Meliton KENYON SERVICE DATE: 10/13/17 EXAM TYPE: RAD - XRY-CHEST XRAY, TWO VIEWS EXAMINATION: XR CHEST CLINICAL INFORMATION: Cough. COMPARISON: None TECHNIQUE: 2 views of the chest were obtained. FINDINGS: No significant abnormality is noted involving the heart, lungs, mediastinum, bony thorax or soft tissues. IMPRESSION: Unremarkable examination. DICTATED BY: Bear Tirado MD DATE/TIME DICTATED:10/13/171535 CROP SCOUT:DOMI DATE/ TIME TRANSCRIBED:10/13/171535 CONFIDENTIAL, DO NOT COPY WITHOUT APPROPRIATE AUTHORIZATION. <Electronically signed in Other Vendor System> SIGNED BY: Bear Tirado MD 10/13/17 2937 Initial ED EKG: normal sinus rhythm, no ST T wave changes Departure Departure Disposition: HOME OR SELF CARE Condition: Stable Clinical Impression Primary Impression: COPD exacerbation Secondary Impressions: Acute bronchitis Qualifiers: Bronchitis organism: unspecified organism Qualified Code: J20.9 - Acute bronchitis, unspecified Referrals: Jad Mcmanus MD (PCP/Family) Additional Instructions: Follow up with Dr. Wahl next week if possible. I encourage you to quit smoking as soon as possible. If you have new or worsneing symptoms such as fever, chills, worsening shortness of breath, worsening cough, difficulty breathing with exertion, or any other new or worsening symptoms, return to emergency department. Departure Forms: Customer Survey General Discharge Information Prescriptions: Current Visit Scripts Amoxicillin/Potassium Clav (Augmentin 875-125 Tablet) 1 TAB PO BID #14 TAB Azithromycin 1 DP PO AD #6 TAB 2 the first day followed by 1 for days 2-5 Prednisone 1 TAB PO BID #10 TAB Benzonatate (Tessalon Perle) 1 CAP PO TID #30 CAP Critical Care Note Critical Care Note Critical Care Time: non-applicable
[2017-10-13] MEDS ORDERED: AUGMENTIN 875-1 EACH PO (16:53)
[2017-10-13] MEDS ORDERED: PREDNISONE20 M1 PO (16:53)
[2017-10-13] MEDS ORDERED: AZITHROMYCIN250 M1 PO (16:53)
[2017-10-13] MEDS ORDERED: TESSALON PERLE100 M1 PO (16:53)
[2017-10-13 17:14] VITALS: BP 113/66
== END 2017-10-13 17:15 ==
LOC: ERH 14:54
PROVIDERS: Physician Assistant Medical
DX: J44.1 Chronic obstructive pulmonary disease with (acute) exacerbation (principal); J20.9 Acute bronchitis, unspecified; F17.210 Nicotine dependence, cigarettes, uncomplicated
CPT/HCPCS: 1263; 1395; 71046; 93005; 93010